=== PATIENT | female | born 1955 | race Caucasian/White ===

== ENCOUNTER 2020-07-25 07:50 | Day surgery (SDC) | payer OTHER ==
[~2020-07-25] VITALS: Ht 152.4 cm; Wt 44.0 kg
[2020-07-25 08:20] VITALS: BP 159/96
[2020-07-25 16:29] VITALS: BP 144/95
== END 2020-07-25 16:20 | disposition home or self-care (01) ==
LOC: DS 07:50 → NM 09:00 → OR 11:30 → MU 12:46 → DS 12:46
PROVIDERS: ATTEND Surgery
DX: C50.911 Malignant neoplasm of unspecified site of right female breast (principal); Z20.828 Contact with and (suspected) exposure to other viral communicable diseases
CPT/HCPCS: 88329; 88344; 88361; G0378; J0131; J0690; J2250; J2405; J3010; J3490; J7120; Q0092; Q9968; U0003-CS